=== PATIENT | female | born 1965 | race Caucasian/White ===

== ENCOUNTER 2022-07-17 10:54 | Emergency (ER) | payer MEDICARE, SELFPAY ==
[2022-07-17 11:17] VITALS: BP 137/89; PULSE 66; RESP 18; TEMP 36.8; O2SAT 98
--- NOTE | 2022-07-17 11:19 | ED.NAVMDI ---
HPI - Nausea/Vomiting/Diarrhea General Chief complaint: Nausea/Vomiting/Diarrhea Stated complaint: nausea,diarrhea Time Seen by Provider: 07/17/22 11:19 Source: patient Mode of arrival: ambulatory Limitations: no limitations History of Present Illness HPI Narrative: 57-year-old female presents with complaint of nausea vomiting diarrhea, upset stomach for the past 2 days. Afebrile. States she is starting to feel better. Vomited once this morning and had 1 episode of diarrhea. Is able to keep down water but no solid food. Denies abdominal pain, states upset stomach with some cramping. Denies urinary symptoms. No blood in stool. Has missed 2 days of work. Reporting that she needs a work note to return. All systems reviewed and negative except as noted above. Related Data Home Medications Medication Instructions Recorded Confirmed abatacept 125 mg/mL subcutaneous 125 mg subcut WEEKLY 06/25/22 07/17/22 syringe (Orencia) cyclobenzaprine 5 mg tablet 5 mg PO TID PRN Muscle spasms 06/25/22 07/17/22 duloxetine 30 mg capsule,delayed 30 mg PO BID 06/25/22 07/17/22 release folic acid 1 mg tablet 1 mg PO DAILY 06/25/22 07/17/22 lisinopril 20 1 tablet PO DAILY 06/25/22 07/17/22 mg-hydrochlorothiazide 12.5 mg tablet cholecalciferol (vitamin D3) 50 50 mcg PO DAILY 06/28/22 07/17/22 mcg (2,000 unit) capsule methotrexate 2.5 mg/mL oral 2.5 mg PO WEEKLY 06/28/22 07/17/22 solution rosuvastatin 10 mg tablet (Crestor) 10 mg PO DAILY 06/28/22 07/17/22 Allergies Allergy/AdvReac Type Severity Reaction Status Date / Time No Known Allergies Allergy Verified 07/17/22 11:20 Review of Systems Review of Systems: CONSTITUTIONAL: Denies fever, chills, or sweats. EYES: Denies visual changes, redness, or discharge. ENT: Denies rhinorrhea, congestion, sore throat, or otalgia. CARDIOVASCULAR: Denies chest pain, palpitations, or edema. RESPIRATORY: Denies cough or dyspnea. GASTROINTESTINAL: denies abdominal pain. Reports nausea, vomiting, or diarrhea. GENITOURINARY: Denies dysuria or hematuria. SKIN: Denies rash or itching. MUSCULOSKELETAL: Denies back pain, joint pain, or myalgia. NEUROLOGIC: Denies headache, numbness, or weakness. PSYCHIATRIC: Denies anxiety or depression. All other systems reviewed are negative, except as documented in HPI. [facility] Past Medical History Medical History (Updated 07/17/22 @ 11:27 by Grace Doyle NP) Depression Fibromyalgia History of deviated nasal septum Hyperlipidemia Hypertension Morbid obesity with BMI of 45.0-49.9, adult Osteoarthritis PLMD (periodic limb movement disorder) Rheumatoid arthritis Sleep apnea Surgical History Surgical History (Updated 06/28/22 @ 13:38 by Yesenia Gordon MA) History of (~1983) History of (~1986) History of cholecystectomy Hx of prior ablation treatment Family History Family History (Updated 06/28/22 @ 13:40 by Yesenia Gordon MA) Unknown Rheumatoid arthritis Fibromyalgia Sleep apnea Mother Heart disease Sibling Heart disease Grandparent Breast cancer Unknown Breast cancer Social History Social History (Updated 06/28/22 @ 13:41 by Yesenia Gordon MA) Smoking status: Never smoker Alcohol intake: never Substance use: never Comments At time of signature, agree with nursing past medical, surgical, social and family history. There is no relevant family history pertinent to the presenting complaint. Exam Narrative: GENERAL: This is a well-nourished, well-developed patient, in no apparent distress. HEAD: normocephalic, atraumatic. EYES: PERRL. Sclera clear/white. Vision is grossly intact. EARS: External ears normal NOSE: External nose normal NECK: Neck supple, non-tender without lymphadenopathy, masses or thyromegaly. CARDIOVASCULAR: Regular rate and rhythm without murmurs, gallops, or rubs. RESPIRATORY: Clear to auscultation. Breath sounds equal bilaterally. No wheezes, rales, o
[2022-07-17 11:21] VITALS: BP 137/89; PULSE 66; RESP 18; TEMP 36.8; O2SAT 98
[2022-07-17] MEDS: ONDANSETRON HCL ODT 4 MG TABLET SUBLINGUAL (11:31)
== END 2022-07-17 11:33 | disposition home or self-care (01) ==
PROVIDERS: Emergency Provider Nurse Practitioner Family; PCP Family Medicine
DX: A08.4 Viral intestinal infection, unspecified (principal); M79.7 Fibromyalgia; E78.5 Hyperlipidemia, unspecified; I10 Essential (primary) hypertension; M19.90 Unspecified osteoarthritis, unspecified site; M06.9 Rheumatoid arthritis, unspecified; E66.01 Morbid (severe) obesity due to excess calories; Z68.42 Body mass index [BMI] 45.0-49.9, adult
CPT/HCPCS: 99213; A9270; G0463